=== PATIENT | female | born 1965 | race Caucasian/White ===

== ENCOUNTER 2020-03-04 17:56 | Emergency (ER) | payer OTHER ==
[2020-03-04 18:42] LABS: BASOPHILS % (AUTO) 0.5 %; EOSINOPHILS # (AUTO) 0.1 10^3/uL (0.0-0.7); HGB - HEMOGLOBIN 16.6 g/dL (12.0-16.0); LYMPHOCYTES # (AUTO) 1.1 10^3/uL (1.5-3.5); LYMPHOCYTES % (AUTO) 12.3 %; MEAN CORPUSCULAR HEMOGLOBIN 33.9 pg (27.0-31.0); MEAN CORPUSCULAR HGB CONC 34.9 g/dL (32.0-36.0); MEAN CORPUSCULAR VOLUME 97.1 fL (81.0-99.0); MONOCYTES # (AUTO) 0.8 10^3/uL (0.0-1.0); MONOCYTES % (AUTO) 8.5 %; NEUTROPHILS # (AUTO) 6.8 10^3/uL (1.5-6.6); NEUTROPHILS % (AUTO) 77.4 %; PLT - PLATELET COUNT 274 10^3/uL (130-450); RED BLOOD COUNT 4.89 10^6/uL (4.20-5.40); RED CELL DISTRIBUTION WIDTH 12.3 % (12.0-15.0); WHITE BLOOD COUNT 8.8 x10^3/uL (4.8-10.8)
[2020-03-04 18:52] LABS: ALBUMIN/GLOBULIN RATIO 1.4 (1.0-2.2); CALCIUM 10.2 mg/dL (8.5-10.3); CREATININE 0.7 mg/dL (0.4-1.0); TOTAL PROTEIN 8.5 g/dL (6.7-8.2)
[2020-03-04 19:29] LABS: GLUCOSE, URINE (UA) NEGATIVE (NEGATIVE); KETONES,URINE (UA) TRACE mg/dL (NEGATIVE); LEUKOCYTE ESTERASE, URINE NEGATIVE (NEGATIVE); NITRITE,URINE NEGATIVE (NEGATIVE); OCCULT BLOOD,URINE NEGATIVE (NEGATIVE); PROTEIN,URINE 100 mg/dL (NEGATIVE); UROBILINOGEN,URINE 1 (NORMAL) E.U./dL (NORMAL)
[2020-03-04] MEDS ORDERED: ONDANSETRON 4 MG/2 ML VIAL IVP STA (19:32)
[2020-03-04] MEDS ORDERED: HYDROmorphone 1 MG/ML CARPUJECT IVP STA (19:32)
[2020-03-04] MEDS ORDERED: SODIUM CHLORIDE 0.9% 1,000 ML IV STA (19:32)
--- NOTE | 2020-03-04 19:35 | ED Physician Documentation ---
History of Present Illness - Stated complaint Stated Complaint: STOMACH PX - Chief complaint Chief Complaint: Abd Pain - History obtained from History obtained from: Patient - History of Present Illness Timing: Prior to arrival - Additonal information Additional information: 54-year-old female presents to the emergency department for evaluation of acute onset right upper quadrant abdominal pain and vomiting. She reports that last night after eating dinner she vomited but did not have abdominal pain. This morning after eating breakfast she vomited and had associated right upper quadrant pain that radiated to her back. No history of similar. She denies fevers or diarrhea. No dysuria urgency or frequency. Pt denies chest pain, dyspnea. No dysuria, urgency or frequency. No hx of blood clots or cancer No pertinent past surgical history. Review of Systems Constitutional: reports: Reviewed and negative Ears: reports: Reviewed and negative Nose: reports: Reviewed and negative Throat: reports: Reviewed and negative Cardiac: reports: Reviewed and negative Respiratory: reports: Reviewed and negative GI: reports: Abdominal Pain, Nausea, Vomiting. denies: Abdominal Swelling, Constipation, Diarrhea, Hematemesis, Bloody / black stool : reports: Reviewed and negative Skin: reports: Reviewed and negative Musculoskeletal: reports: Reviewed and negative PD PAST MEDICAL HISTORY - Past Medical History Past Medical History: Yes Cardiovascular: Hypertension - Past Surgical History Past Surgical History: No - Present Medications Home Medications: Ambulatory Orders Medication Instructions Recorded Confirmed Bp Medication 03/04/20 - Allergies Allergies/Adverse Reactions: Allergies Allergy/AdvReac Type Severity Reaction Status Date / Time No Known Drug Allergies Allergy Verified 03/04/20 18:12 - Social History Does the pt smoke?: No Smoking Status: Never smoker Does the pt drink ETOH?: Yes Does the pt have substance abuse?: No - Immunizations Immunizations are current?: Yes PD ED PE NORMAL - General General: Alert and oriented X 3, No acute distress, Well developed/nourished - HEENT HEENT: PERRL, EOMI - Neck Neck: Supple, no meningeal sign, No adenopathy - Cardiac Cardiac: RRR, No murmur - Respiratory Respiratory: No respiratory distress - Abdomen Abdomen: Normal bowel sounds, Soft. No: Non tender (Right upper quadrant abdominal pain with mild guarding. Equivocal Cornell's. Negative McBurney's.) - Back Back: No CVA TTP, No spinal TTP - Derm Derm: Normal color, Warm and dry - Extremities Extremities: No deformity - Neuro Neuro: Alert and oriented X 3, police manager 2-12 intact, No motor deficit Eye Opening: Spontaneous Motor: Obeys Commands Verbal: Oriented GCS Score: 15 Results - Vitals Vitals: Vital Signs - 24 hr 03/04/20 03/04/20 03/04/20 18:07 20:14 22:00 Temperature 36.9 C 36.9 C 36.8 C Heart Rate 104 H 81 80 Respiratory 18 18 19 Rate Blood Pressure 134/110 H 125/90 H 122/88 H O2 Saturation 95 93 95 Oxygen O2 Source Room air - Labs Labs: Laboratory Tests 03/04/20 03/04/20 03/04/20 18:32 18:32 19:20 WBC 8.8 RBC 4.89 Hgb 16.6 H Hct 47.5 H MCV 97.1 MCH 33.9 H MCHC 34.9 RDW 12.3 Plt Count 274 MPV 11.0 H Neut # (Auto) 6.8 H Lymph # (Auto) 1.1 L [place] # (Auto) 0.8 Eos # (Auto) 0.1 Baso # (Auto) 0.0 Absolute Nucleated RBC 0.00 Nucleated RBC % 0.0 Sodium 135 Potassium 3.7 Chloride 97 L Carbon Dioxide 25 Anion Gap 13.0 BUN 9 Creatinine 0.7 Estimated GFR (MDRD) 87 L Glucose 168 H Calcium 10.2 Total Bilirubin 1.0 AST 61 H ALT 104 H Alkaline Phosphatase 64 Total Protein 8.5 H Albumin 5.0 Globulin 3.5 Albumin/Globulin Ratio 1.4 Lipase 19 L Urine Color YELLOW Urine Clarity HAZY Urine pH 5.0 Ur Specific [place] >=1.030 H Urine Protein 100 H Urine Glucose (UA) NEGATIVE Urine Ketones TRACE Urine Occult Blood NEGATIVE Urine Nitrite NEGATIVE Urine Bilirubin NEGATIVE Urine Urobilinogen 1 (NORMAL) Ur Leukocyte Esterase NEGATIVE Urine RBC None Seen Urine WBC 0-3 Ur Squamous Epith Cells MANY Squamous H Urine Bacteria Few Ur Microscopic Review INDICATED Urine Culture Comments NOT INDICATED Urine HCG, Qual 03/04/20 19:20 WBC RBC Hgb Hct MCV MCH MCHC RDW Plt Count MPV Neut # (Auto) Lymph # (Auto) [place] # (Auto) Eos # (Auto) Baso # (Auto) Absolute Nucleated RBC Nucleated RBC % Sodium Potassium Chloride Carbon Dioxide Anion Gap BUN Creatinine Estimated GFR (MDRD) Glucose Calcium Total Bilirubin AST ALT Alkaline Phosphatase Total Protein Albumin Globulin Albumin/Globulin Ratio Lipase Urine Color Urine Clarity Urine pH Ur Specific [place] >=1.030 H Urine Protein Urine Glucose (UA) Urine Ketones Urine Occult Blood Urine Nitrite Urine Bilirubin Urine Urobilinogen Ur Leukocyte Esterase Urine RBC Urine WBC Ur Squamous Epith Cells Urine Bacteria Ur Microscopic Review Urine Culture Comments Urine HCG, Qual NEGATIVE - Rads (name of study) Abd Ultrasound Radiology: See rad report, Other (Results reviewed with tech. No gallbladder wall thickening. No stones. No findings of CBD dilation) PD MEDICAL DECISION MAKING - ED course Complexity details: reviewed results, re-evaluated patient, considered differential, d/w patient, d/w family ED course: 54-year-old female presents to the emergency department for evaluation of acute right upper quadrant abdominal pain and associated vomiting. Pain began about 24 hours ago. History was most concerning for suspected cholecystitis. She does have a mild transaminase elevation but no T bili elevation. Suspicion for obstruction is lower. Abdominal ultrasound showed a diffusely fatty liver but no signs of cholecystitis. Initially after analgesia in the emergency department her pain improved but returned again with associated nausea. We will complete abdominal CT scan for further differentiation. Patient will be signed out to Dr. Mitchell to follow-up on CT scan Departure - Departure Clinical Impression: RUQ abdominal pain, Fatty liver Condition: Stable Record reviewed to determine appropriate education?: Yes Instructions: ED Abdominal Pain Unkn Cause, NAFLD Follow-Up: Francois Velazquez ARNP [Primary Care Provider] - Comments: Tawny hope that you are feeling better soon. The ultrasound of your abdomen did not show any gallstones therefore we did complete a CT of your abdomen. However it did show that you have what is called a fatty liver. This is something that really should be followed up with your primary provider. In the long-term fatty liver should be seen and referred to a wire inspector to talk about management in the long-term. If your symptoms are not improving, you have fevers, suddenly severe or different pain or bloody stools please return immediately to the ER
[2020-03-04 19:38] LABS: CLARITY,URINE HAZY (CLEAR)
[2020-03-04 19:39] LABS: BILIRUBIN,URINE NEGATIVE (NEGATIVE); HCG UR QUAL NEGATIVE; ICTOTEST,URINE NEGATIVE
[2020-03-04 19:41] LABS: BACTERIA,URINE Few /HPF (None Seen); RBC,URINE None Seen /HPF (0-5); SQUAMOUS EPITHELIAL CELL,UR MANY Squamous (<= Few)
[2020-03-04] MEDS ORDERED: IOVERSOL 320 100 ML VIAL IVP ONE ×2 (22:28→23:02)
--- NOTE | 2020-03-04 22:50 | Ultrasound Report ---
PROCEDURE: Abdomen Limited INDICATIONS: RUQ abd pain TECHNIQUE: Real-time scanning was performed of the right upper quadrant abdominal organs, with image documentati on. COMPARISON: None. FINDINGS: Liver: Liver is upper limits of normal in size and diffusely increased in echogenicity. Gallbladder: The gallbladder appears normal without gallstones or gallbladder wall thickening. There is no pericholecystic fluid. Biliary ducts: Intrahepatic bile ducts are non-dilated. Extrahepatic bile duct caliber measures 4 m m. Normal is 6-7 mm or less in diameter, or 10 mm or less post-cholecystectomy. Right kidney: Right kidney measures 10.3 cm long. No hydronephrosis or nephrolithiasis. No solid m asses. Aorta: Visualized aorta is normal in caliber at less than 3 cm. Iliacs: Proximal common iliac arteries are normal in caliber at less than 2.5 cm. IVC: Intrahepatic inferior vena cava is patent. Miscellaneous: No free abdominal fluid. IMPRESSION: 1. Diffusely increased hepatic echogenicity is nonspecific, but most commonly encountered in the set ting of hepatic steatosis. However, other causes of hepatocellular disease are not excluded. Recommen d clinical correlation. 2. Normal appearance of the gallbladder. Reviewed by: Jonathan Segal MD on 03/04/2020 10:49 PM PDT Approved by: Jonathan Segal MD on 03/04/2020 10:49 PM PDT Station ID: [id number]
[2020-03-05 00:05] VITALS: BP 110/67
--- NOTE | 2020-03-05 00:05 | ED Physician Documentation ---
ED Addendum - Addendum Addendum: patient signed out to me at shift change by TIFFANY Fernandez. Patient was reevaluated she is pain-free now she is tolerated p.o. challenge she is had a bowel movement without complications she reports that she is pain-free now. Her CAT scan did show a preliminary radiology interpretation of impression: Findings most consistent with distal small bowel obstruction source of the obstruction not seen fatty liver normal appendix and small fat-containing right inguinal hernia. Patient is never had any previous abdominal or pelvic surgery she is afebrile and asymptomatic currently she will follow-up with her primary care provider today for recheck. 03/05/20 00:05 Departure - Departure Disposition: 01 Home, Self Care Clinical Impression: Fatty liver Abdominal pain Qualifiers: Abdominal location: unspecified location Qualified Code(s): R10.9 - Unspecified abdominal pain Condition: Stable Instructions: NAFLD, ED Abdominal Pain Unkn Cause Follow-Up: Francois Velazquez ARNP [Primary Care Provider] - Comments: Tawny hope that you are feeling better soon. The ultrasound of your abdomen did not show any gallstones therefore we did complete a CT of your abdomen. However it did show that you have what is called a fatty liver. This is something that really should be followed up with your primary provider. In the long-term fatty liver should be seen and referred to a emergency care tech to talk about management in the long-term. If your symptoms are not improving, you have fevers, suddenly severe or different pain or bloody stools please return immediately to the ER
--- NOTE | 2020-03-05 07:59 | CT Report ---
PROCEDURE: Abdomen/Pelvis W INDICATIONS: RUQ abdominal pain CONTRAST: IV CONTRAST: Optiray 320 ml: 100 PO CONTRAST: *NO PO CONTRAST TECHNIQUE: After the administration of IV contrast, 5 mm thick sections acquired from the diaphragms to the symp hysis. 5 mm thick coronal and sagittal reformats were acquired. For radiation dose reduction, the f ollowing was used: automated exposure control, adjustment of mA and/or kV according to patient size. COMPARISON: Abdomen ultrasound 03/04/2020 FINDINGS: Image quality: Excellent. ABDOMEN: Lung bases: Lung bases are clear. Heart size is normal. Solid organs: Liver is enlarged with prominent steatosis. The spleen is normal in size and enhanceme nt. Gallbladder is unremarkable Biliary system is non dilated. Pancreas enhances normally. No adr enal nodules. Kidneys demonstrate normal size and enhancement, without hydronephrosis. Peritoneum and bowel: There are moderately dilated fluid-filled loops of small bowel within the abdom en and pelvis. Greatest dimension measures approximately 5 cm. Suspected transition point is in the r ight lower quadrant secondary to small bowel loop compression within this region. No free fluid or ai r. Nodes and vessels: No retroperitoneal or mesenteric adenopathy by size criteria. Aorta and inferior vena cava are normal in size. Miscellaneous: Fat-containing ventral hernia is present with rectus diastases measuring 16 mm. PELVIS: Genitourinary: Bladder wall thickness is normal. Miscellaneous: Fat-containing right inguinal hernia. Bones: No suspicious bony lesions. No vertebral body compression fractures. L5 pars defect is note d. IMPRESSION: 1. Prominent partial small bowel obstruction as described above. No free fluid or free air. Source of obstruction not clearly identified. 2. Prominent hepatic steatosis. The above findings are concordant with preliminary report. Reviewed by: Daya Garcia MD on 03/05/2020 7:58 AM PDT Approved by: Daya Garcia MD on 03/05/2020 7:58 AM PDT Station ID: [id number]
== END 2020-03-05 00:10 | disposition home or self-care (01) ==
LOC: ED 17:56
DX: R10.11 Right upper quadrant pain (principal); R11.2 Nausea with vomiting, unspecified; K76.0 Fatty (change of) liver, not elsewhere classified; K56.600 Partial intestinal obstruction, unspecified as to cause; K40.90 Unilateral inguinal hernia, without obstruction or gangrene, not specified as recurrent; I10 Essential (primary) hypertension
CPT/HCPCS: 36415; 74177; 76705; 80053; 81001; 81025; 83690; 85025; 96361; 96374; 99284; J1170; Q9967; 81003; 87086

== ENCOUNTER 2023-12-05 10:35 | Outpatient (CLI) | payer OTHER ==
--- NOTE | 2023-12-07 11:21 | XRAY Report ---
PROCEDURE: Ankle 3+V LT INDICATIONS: CONTUSION OF LEFT ANKLE TECHNIQUE: 3 views of the ankle were acquired. COMPARISON: None. FINDINGS: Bones: Comminuted, mildly displaced fracture of the distal fibular epiphysis which extends below the syndesmosis. Ankle mortise is normally aligned on nonweightbearing view. No suspicious bony lesion s. Soft tissues: No tibiotalar joint effusion. Achilles tendon appears normal. Moderate soft tissue s welling about the ankle. Small plantar calcaneal enthesophyte. IMPRESSION: Comminuted, mildly displaced fracture of the distal fibular epiphysis which extends below the syndesm osis (Martini A). Reviewed by: Silva Degroot MD on 12/07/2023 11:19 AM PDT Approved by: Silva Degroot MD on 12/07/2023 11:19 AM PDT Station ID: [id number]
== END 2023-12-05 10:55 | disposition home or self-care (01) ==
LOC: DI.N 10:35
PROVIDERS: ATTEND Physician Assistant Medical
DX: S82.832A Other fracture of upper and lower end of left fibula, initial encounter for closed fracture (principal)

== ENCOUNTER 2023-12-12 07:22 | Outpatient (CLI) | payer OTHER ==
--- NOTE | 2023-12-13 09:13 | XRAY Report ---
PROCEDURE: Ankle 3+V LT INDICATIONS: OTHER FRACTURE OF LEFT LOWER LEG TECHNIQUE: 3 views of the ankle were acquired. COMPARISON: Ankle x-ray 12/05/2023. FINDINGS: Bones: Distal fibular fracture again identified with slight distortion of the ankle mortise, interval callus formation. Plantar and dorsal calcaneal spurs present. Soft tissues: Soft tissue swelling around ankle. IMPRESSION: Distal fibular fracture again noted Reviewed by: John Garcia MD on 12/13/2023 9:11 AM PDT Approved by: John Garcia MD on 12/13/2023 9:11 AM PDT Station ID: [id number]
== END 2023-12-12 07:23 | disposition home or self-care (01) ==
LOC: DI.N 07:22
PROVIDERS: ATTEND Orthopaedic Surgery
DX: S82.892A Other fracture of left lower leg, initial encounter for closed fracture (principal)

== ENCOUNTER 2024-01-10 13:33 | Outpatient (CLI) | payer OTHER ==
--- NOTE | 2024-01-11 12:41 | XRAY Report ---
Ankle 3+V LT HISTORY: 58 years of age, FRACTURE TECHNIQUE: Ankle 3+V LT COMPARISON: 12/12/2023. FINDINGS/IMPRESSION: Mildly comminuted, mildly displaced distal fibula fracture, unchanged from prior exam. No definitive interval healing. Diffuse soft tissue swelling of the ankle. Posterior calcaneal and plantar calcaneal enthesophyte. Reviewed by: Maris Currie MD on 01/11/2024 12:40 PM PDT Approved by: Maris Currie MD on 01/11/2024 12:40 PM PDT Station ID: [id number]
== END 2024-01-10 13:34 | disposition home or self-care (01) ==
LOC: DI.N 13:33
PROVIDERS: ATTEND Orthopaedic Surgery
DX: S82.832A Other fracture of upper and lower end of left fibula, initial encounter for closed fracture (principal); M77.31 Calcaneal spur, right foot; M77.52 Other enthesopathy of left foot and ankle